=== PATIENT | female | born 1965 | race Caucasian/White ===

== ENCOUNTER → 2024-07-14 11:16 | Outpatient (REF) | payer BC, SELFPAY | LOC: WDC 11:16 | PROVIDERS: ATTENDING PHYSICIAN Family Medicine | DX: Z12.31 Encounter for screening mammogram for malignant neoplasm of breast (principal) | CPT/HCPCS: 77063; 77067 ==

== ENCOUNTER 2024-10-12 10:24 | Emergency (ER) | payer BC, SELFPAY ==
[2024-10-12 10:31] VITALS: BP 142/95
[2024-10-12 10:47] LABS: % Basophils 0.5 % (0-2); % Eosinophils 1.5 % (0-6); % Immature Granulocytes 0.2 % (0-0.5); % Lymphocytes 35.6 % (20.5-51.1); % Monocytes 7.4 % (1.7-9.3); % Neutrophils 54.8 % (42.2-75.2); Absolute Eosinophils 0.1 10^3/uL (0-0.7); Absolute Lymphocytes 1.4 10^3/uL (1.2-3.4); Absolute Monocytes 0.3 10^3/uL (0.1-0.6); Absolute Neutrophils 2.2 10^3/uL (1.4-6.5); Hematocrit 35.7 % (37.0-47.0); Hemoglobin 12.7 g/dL (12.0-16.0); Mean Corp Hgb Conc. 35.6 g/dL (33.0-37.0); Mean Corpuscular Hgb 33.7 pg (27.0-31.0); Mean Corpuscular Volume 94.7 fL (81.0-99.0); Mean Platelet Volume 8.7 fL (7.4-10.4); Nucleated Red Blood Cells % 0 %; Platelet Count 217 10^3/uL (130-400); Red Blood Cell Count 3.77 10^6/uL (4.20-5.40); Red Cell Dist. Width 11.8 % (11.5-14.5)
[2024-10-12 11:08] LABS: ALT (SGPT) 20 U/L (0-35); AST (SGOT) 29 U/L (14-36); Albumin 4.2 g/dl (3.5-5.0); Alkaline Phosphatase 72 U/L (38-126); Blood Urea Nitrogen 14 mg/dl (7-17); Calcium 9.4 mg/dl (8.4-10.2); Carbon Dioxide 30 mmol/L (22-30); Chloride 102 mmol/L (98-107); Glucose 168 mg/dl (70-99); Potassium 4.1 mmol/L (3.5-5.1); Sodium 137 mmol/L (135-145); Total Bilirubin 0.7 mg/dl (0.2-1.3); Total Protein 7.1 g/dl (6.3-8.2); eGFR > 60.00
[2024-10-12 11:12] LABS: Troponin I < 0.012 ng/ml
[2024-10-12 11:17] VITALS: BP 132/81
[2024-10-12 11:25] VITALS: BMI 21.9
--- NOTE | 2024-10-12 11:32 | ED.GENMED ---
History of Present Illness
General
Chief Complaint: Chest Pain
Source: patient
Exam Limitations: none
Time Seen by Provider: 10/12/24 11:19
History of Present Illness
History of Present Illness:
59yoF with no significant past medical history presenting with her for evaluation of chest pain. Patient reports chest discomfort in her left chest that started last night around 8 PM when she was sitting watching TV. She denies any
inciting incident. The pain remained constant but she was eventually able to go to sleep. Pain was again present when she woke up at 8 AM today. The pain started to radiate to the right side of the chest today. Nothing seems to make the pain
better or worse. Specifically, she denies any exertional or pleuritic pain. She is otherwise asymptomatic and denies any shortness of breath, cough, fever, diaphoresis, nausea, dizziness, paresthesias. Patient typically walks about 1 to 2 hours
daily and denies any exertional chest pain. No tobacco use. Patient states she is otherwise healthy and does not take any medications.
Past History
Past History
ED Past Medical History: Other (Denies)
Social History
Tobacco: Non-smoker
Alcohol: None
Personal:
Living: with family
Employment: Not employed
Phy Exam
General Physical Exam
General Presentation: well appearing and no apparent distress
General age: appears stated age
General Skin: warm and dry
General Habitus: normal
General Mental: alert
General Hydration: appears well hydrated
ENT Exam
ENT Exam: normocephalic
Cardiovascular Exam
Cardiovascular Exam: regular rate/rhythm, no edema and no murmur
Pulmonary Exam
Pulmonary Exam: lungs clear, no respiratory distress, no rales, no crackles, no rhonchi and other (+Chest wall tenderness bilaterally)
Neurological Exam
Neurological Exam: alert
[place] Coma Scale
Eye Opening: Spontaneous
Verbal Response: Oriented
Motor Response: Obeys Commands
GCS Total Score: 15
Skin Exam
Skin Exam: normal color and warm/dry
Psychiatric Exam
Psychiatric Exam: normal mood/affect
Scores
Heart Score for Chest Pain Patients
STEMI patient?: No
History: Moderately Suspicious
ECG: Normal
Age: >45 - <65 years
Risk Factors: No Risk Factors
Troponin: </= Normal Limit
Heart Score for Chest Pain Patients: 2
Heart Score Risk: 2.5% MACE over next 6 weeks
Course
Orders/Labs/Results
Orders:
Orders
10/12/24 10:26
ECG [Electrocardiogram (*1)] Urgent
Reason for Study: Chest Pain
EKG- Treatment ONCE
10/12/24 10:37
Complete Blood Count/With Diff Urgent
Comprehensive Metabolic Panel Urgent
Troponin I Urgent
10/12/24 11:34
Cardiac Monitoring- Treatment ONCE
EKG- Treatment ONCE
CR Chest - 2 Views Urgent
Comment:
Reason For Exam: CP
10/12/24 12:30
Electrocardiogram (*1) Urgent
Reason for Study: Chest Pain
10/12/24 12:41
Troponin I Urgent
Abnormal Lab Results
10/12/24
10:37
WBC 4.0 L 10^3/uL
(4.8-10.8)
RBC 3.77 L 10^6/uL
(4.20-5.40)
Hct 35.7 L %
(37.0-47.0)
MCH 33.7 H pg
(27.0-31.0)
Glucose 168 H mg/dl
(70-99)
10/12/24 10:37
10/12/24 10:37
Vital Signs
Initial and Last Documented VS:
Initial Vital Signs
Temp Pulse Resp BP Pulse Ox
99.1 F 98 16 142/95 100
10/12/24 10:31 10/12/24 10:31 10/12/24 10:31 10/12/24 10:31 10/12/24 10:31
Last Documented Vital Signs
Temp Pulse Resp BP Pulse Ox
99.1 F 80 13 123/81 99
10/12/24 10:31 10/12/24 12:45 10/12/24 12:45 10/12/24 12:00 10/12/24 12:30
MDM/Problems Addressed
Differential Diagnosis Includes:
59yoF here with chest pain since last night. L sided chest discomfort that radiates to the R chest. Otherwise asymptomatic. Denies exertional symptoms. No known cardiac risk factors. VSS. There is chest wall tenderness on exam. Differential
diagnosis includes but is not limited to: ACS, angina, musculoskeletal, pneumonia, less likely PE as oxygen saturation is 100% and she denies pleuritic pain
Initial ED plan: Cardiac labs and EKG obtained in triage. EKG shows NSR without ischemic changes and troponin WNL. Will check delta troponin/EKG and CXR.
*EKG
Interpreted by ED Provider?: Yes
EKG Intrepretation Date: 10/12/24
Heart Rate: 91
Rate: normal
Rhythm: sinus
[place]: normal axis
Interval: normal interval
QRS Pattern: normal QRS
Ischemia: no ischemia
*Critical Care Note
Total Time (30-74mins, 75-104mins- exclusive of procedures): Not Applicable
Update Note
Update Note:
Repeat EKG and troponin unchanged. Chest x-ray is normal. On reassessment, patient is already dressed and ready to go home. No indication for hospitalization. Unclear etiology of pain, possibly musculoskeletal given reproducible pain.
Supportive care discussed. Advised close follow-up with PCP and ED return precautions discussed. Patient in agreement with plan and was discharged in stable condition.
ED Attending Note
-
Portions of this chart may have been created with voice recognition software.� Occasional wrong word or��sound alike� substitutions may have occurred due to the inherent limitations of voice recognition software.
Discharge Plan
Departure
Patient Disposition: Home (Routine Discharge)
Date of Disposition: 10/12/24
Time of Disposition: 14:42
Patient with high blood pressure during this ER visit?: No
Discharge Problem:
Chest pain
Instructions: Chest Pain PCP Follow Up
Referrals:
Gi Warner DO [Family Provider] -
Activity Restrictions/Additional Instructions:
Please call today to schedule a follow-up with your family doctor. Return to the ER with any new or worsening symptoms.
Interventions
Interventions:
*Risk Screen - Suicide Last Done: 10/12/24 11:25
*General Assessment Last Done: 10/12/24 10:34
*Neglect/Abuse Screening Last Done: 10/12/24 11:25
ED- Fall Risk Assessment Last Done: 10/12/24 11:25
*ED COVID-19 Vaccine History Last Done: 10/12/24 11:25
*Nursing Disposition Last Done: 10/12/24 14:56
ED- Cardiac Assessment Last Done: 10/12/24 11:25
Discharge Date and Time
Discharge Date/Time: 10/12/24 14:56
Print Language: FRENCH
[2024-10-12 12:00] VITALS: BP 123/81
[2024-10-12 13:27] LABS: Troponin I < 0.012 ng/ml
== END 2024-10-12 14:56 | disposition home or self-care (01) ==
LOC: EMR 10:24
PROVIDERS: Emergency Medicine; Physician Assistant; EMERGENCY PHYSICIAN Emergency Medicine; FAMILY PHYSICIAN Family Medicine
DX: R07.89 Other chest pain (principal)
CPT/HCPCS: 99285; 71046; 80053; 84484; 85025; 93005

== ENCOUNTER 2025-07-02 15:18 | Inpatient (IN) | payer BC, SELFPAY ==
[2025-07-02] VITALS (14 sets, daily range): BP systolic 101–135; BP diastolic 81–103; BMI 19.9
--- NOTE | 2025-07-02 11:21 | EDRN ---
Dr. Alvarez in room w/ pt at this time.
--- NOTE | 2025-07-02 11:23 | EDRN ---
Pt is here for SOB and chest pain.
--- NOTE | 2025-07-02 11:26 | ED.GENMED ---
History of Present Illness
General
Chief Complaint: Heart Rate Problem
Source: patient and family
Exam Limitations: none
Time Seen by Provider: 07/02/25 11:20
Nursing documentation reviewed up to this point in time: agreed with
History of Present Illness
History of Present Illness:
Note:
CHIEF COMPLAINT(S)
Shortness of breath and chest pain.
HISTORY OF PRESENT ILLNESS
The patient is a 60-year-old female presenting with shortness of breath and chest pain that began on Tuesday. The shortness of breath was severe enough to require her son, Chuck, assistance. She reports the pain as localized to the chest area,
which worsens upon palpation. The patient mentions experiencing stress due to the recent passing of her on June 09. She had an earlier medical evaluation where an electrocardiogram was mentioned but details are not fully clear.
Currently, the patient denies taking aspirin regularly, stating she previously used to take baby aspirin but was advised to stop.
SOCIAL DETERMINANTS AFFECTING HEALTH
The patient reports increased stress due to the recent passing of her . She lives in an area that requires travel assistance from her son because she does not drive and her was her main support.
PHYSICAL EXAM
General: Alert, no acute distress.
Skin: Warm, dry.
Head: Normocephalic, atraumatic.
Neck: Supple, trachea midline.
Eye, Ears, Nose, Mouth, and Throat: Oral mucosa moist.
Cardiovascular: Normal peripheral perfusion, No edema.
Respiratory: Respirations are non-labored.
Gastrointestinal: Abdomen nondistended.
Back: Normal range of motion, Normal alignment.
Musculoskeletal: Normal range of motion, normal strength.
Neurological: Alert and oriented to person, place, time, and situation, No focal neurological deficit observed.
Psychiatric: Cooperative, appropriate mood & affect.
PLAN
- The patient will be administered aspirin in the emergency department.
- Initiate an intravenous line for further treatment.
- Blood tests will be conducted to explore underlying causes.
- Administer nitroglycerin to assess its effectiveness on chest pain.
- A chest X-ray will be performed for further evaluation.
DIFFERENTIAL DIAGNOSIS
The Differential Diagnosis includes, in no particular order and is not limited to:
- Acute coronary syndrome
- Angina pectoris
- Anxiety-related chest pain
- Pulmonary embolism
- Pneumonia
- Congestive heart failure
- Gastroesophageal reflux disease
- Costochondritis
- Pleural effusion
- Anemia
CARE-UPDATE
07/02/25 - 16:03
Patient remains on IV Heparin for anticoagulation therapy. Recent PT test confirms continued presence of bilateral pulmonary embolism. Monitoring for any bleeding complications due to anticoagulation therapy is ongoing. Adjustments to dosing to be
considered based on follow-up coagulation studies and clinical response. Continued assessment of right ventricular strain is recommended to evaluate cardiac status. Regular reassessment of d-dimer levels to track resolution of PE is planned.
EKG
My independent EKG interpretation is:
- Time of EKG: Not specified
- Rhythm: Supraventricular tachycardia (SVT), possible atrial tachycardia
- Heart Rate: Not specified
- [place] Interval: Not specified
- QRS Duration: Not specified
- QT Interval: Not specified
- [place]: Normal
- Abnormalities: Abnormality in anterior leads
Disposition:
SUMMARY OF ENCOUNTER
The patient, a 59-year-old female, presented with shortness of breath and chest pain. After examining the patient, bilateral pulmonary embolism with right heart strain was diagnosed. There was consideration for thrombolysis, catheter-directed
thrombolysis, or thrombectomy, but her current vital signs were stable, and these interventions were not deemed necessary. A PERT (Pulmonary Embolism Response Team) alert was activated to ensure that the pulmonary embolism team was aware and
involved in her management.
DISPOSITION
Admit to ICU.
ASSESSMENT
Bilateral pulmonary embolism with right heart strain.
EMERGENCY TREATMENTS ADMINISTERED
Ibuprofen was administered during the visit.
PLAN
The patient will be admitted to the Intensive Care Unit for close monitoring and management of her pulmonary embolism.
MEDICAL DECISION MAKING
-Category 1: My independent interpretation of the EKG indicated abnormalities in the anterior leads.
-Risk: Care significantly affected by social determinants of health due to increased stress from the recent passing of her and lack of personal transportation.
DIAGNOSIS
1. Pulmonary Embolism (Bilateral) - ICD-10: I26.99
2. Right Heart Strain - ICD-10: I51.9
Past History
Past History
ED Past Medical History: Other (Denies)
Social History
Tobacco: Non-smoker
Alcohol: None
Personal:
Living: with family
Employment: Not employed
Phy Exam
Physical Exam
Physical Exam:
.
Course
Orders/Labs/Results
Orders:
Orders
07/02/25 10:57
Electrocardiogram (*1) Urgent
Reason for Study: Chest Pain
EKG- Treatment ONCE
07/02/25 11:25
IV Insert/Care/Rem.- Treatment PRN
CR Chest Portable - 1 View Urgent
Comment:
Reason For Exam: chest pain
Reason Study Needs to be Portable: Patient Unstable
Pulse Ox/cont/shift [RESP] Stat
Quantity: 1
07/02/25 11:26
Aspirin Chewable [Low Strength Aspirin] 324 mg .ROUTE .STK-MED ONE
Nitroglycerin Sublingual [Nitrostat (Sublingual)] 0.4 mg .ROUTE .STK-MED ONE
07/02/25 11:29
Aspirin Chewable [Low Strength Aspirin] 324 mg PO NOW STA
Nitroglycerin Sublingual [Nitrostat (Sublingual)] 0.4 mg SL NOW STA
07/02/25 11:40
Complete Blood Count/With Diff Urgent
Comprehensive Metabolic Panel Urgent
D-Dimer Urgent
Magnesium Urgent
NT-proBNP Urgent
PTT Urgent
Comment: ADD
Troponin I Urgent
07/02/25 12:28
Heparin 4,600 units IV NOW STA
07/02/25 12:30
Heparin 23954 Units/250 ml 25,000 units in 250 ml IV PER PROTOCOL
Weight to be used for heparin protocol in kilograms (kg):: 57.6
Protocol:: DVT/PE
PTT Goal Range to be used:: PTT 73 to 111 seconds
Order type:: Initial
INITIAL Infusion Dose (UNITS/KG/hr) & then follow protocol:: 18 units/kg/hr
Infusion Dose in UNITS/hr & then follow protocol (UNITS/hr):: 1,000
INFUSION RATE in mL/hr & then follow protocol (mL/hr):: 10
For DVT/PE algorithm, re-bolus for low PTT?: Yes
PTT less than or equal to 64 seconds:: Re-bolus 80 units/kg (max 10,000units). Increase by 200 units/hr
(+ 2mL/hr)
PTT 64.1 to 72.9 seconds:: Re-bolus 40 units/kg (max 5,000 units). Increase by 100 units/hr
(+ 1mL/hr)
PTT 73 to 111 seconds:: Target Range. No change in rate.
PTT 111.1 to 130.9 seconds:: Decrease rate by 100 units/hr (- 1 mL/hr)
PTT 131 to 199.9 seconds:: HOLD for 1 hr. Then decrease by 200 units/hr (- 2mL/hr)
PTT greater than or equal to 200 seconds:: HOLD for 2 hrs & Notify Provider. Then decrease by 200 units/hr
(- 2mL/hr)
Lab follow-up:: Each change, PTT q6h until 2 consecutive are therapeutic. Then
PTT daily.
07/02/25 12:[address] Non Medication Order As Directed
Physician Order: PTT 6 hours after initial start of Heparin infusion
Above order entered?: Yes
07/02/25 12:44
Heparin 2,300 units IV Q6HPRN PRN
Heparin 4,600 units IV Q6HPRN PRN
07/02/25 12:48
Add On- LAB Urgent
Comments:: tube in lab
Tests Added?: PTT
07/02/25 13:18
CT Chest PE Study Urgent
Comment:
Reason For Exam: ddimer elevated short of breath, chest pain
07/02/25 14:08
Echo 2D MMode Color/Doppler Routine
Reason for Study: Tachycardia, Abnormal troponin
07/02/25 14:51
Troponin I Routine
07/02/25 15:04
Admit/Transfer Patient As Directed
Co-Sign Provider:
Level of Care: Inpatient admission
Assign to:: ICU
Physician / Group: Steffanie
Diagnosis: acute PEs
Reason for Hospitalization: acute PEs
Expected length of stay greater than two midnights?: Yes
ELOS- Estimated Length of Stay in days: 4
I certify the patient meets the requirements for IP care: Yes
PRN Pain Medication Management As Directed
May give lesser potent ordered pain med per pt: Yes
preference::
Protocol:: Medication orders for pain may be administered in a
manner that supports deferring to patient preference
when the pt is:
- Requesting an ordered lesser potent pain medication.
Least to most potent pain medications are defined
as: acetaminophen < NSAID < tramadol < opioids
(morphine, oxycodone, hydromorphone).
- Requesting a lesser dose of the same medication IF
ORDERED.
- Requesting a less intrusive route of administration
if both routes are prescribed by the provider (PO <
IV).
07/02/25 15:05
Code Status As Directed
Resuscitation Status: Full Code
07/02/25 19:00
PTT Urgent
Abnormal Lab Results
07/02/25 07/02/25
11:40 14:51
WBC 11.5 H 10^3/uL
(4.8-10.8)
RBC 4.03 L 10^6/uL
(4.20-5.40)
MCH 33.3 H pg
(27.0-31.0)
Plt Count 118 L 10^3/uL
(130-400)
Absolute Neuts (auto) 8.7 H 10^3/uL
(1.4-6.5)
Absolute Monos (auto) 0.9 H 10^3/uL
(0.1-0.6)
Neutrophils % 75.8 H %
(42.2-75.2)
Lymphocytes % 15.6 L %
(20.5-51.1)
D-Dimer > 20.00 H ug/mlFEU
(0.00-0.50)
Glucose 136 H mg/dl
(70-99)
Calcium 10.4 H mg/dl
(8.4-10.2)
Magnesium 1.5 L mg/dl
(1.6-2.3)
AST 117 H U/L
(14-36)
ALT 162 H U/L
(0-35)
Troponin I 0.285 H* ng/ml 0.248 H* ng/ml
07/02/25 11:40
07/02/25 11:40
Vital Signs
Initial and Last Documented VS:
Initial Vital Signs
Temp Pulse Resp BP Pulse Ox
97.8 F 125 20 129/103 98
07/02/25 10:53 07/02/25 10:53 07/02/25 10:53 07/02/25 10:53 07/02/25 10:53
Last Documented Vital Signs
Temp Pulse Resp BP Pulse Ox
97.8 F 114 27 129/94 94
07/02/25 10:53 07/02/25 16:00 07/02/25 16:00 07/02/25 15:00 07/02/25 16:00
*Pulse Oximetry
SaO2: 98
Oxygen Mode of Delivery: Room air
Patient hypoxic: no
*Critical Care Note
Total Time (30-74mins, 75-104mins- exclusive of procedures): 40
comment:
Critical care statement: A total of 40 minutes of critical care time was provided for this patient. This includes management of unstable vital signs, evaluation of the patient at bedside, reviewing the patient's pertinent medical records, discussion
with consultants, review of old EKGs and review of pertinent medical records. This time with separate from time utilized to perform the aforementioned documented procedures
ED Attending Note
-
Portions of this chart may have been created with voice recognition software.� Occasional wrong word or��sound alike� substitutions may have occurred due to the inherent limitations of voice recognition software.
Discharge Plan
Departure
Patient Disposition: Admit
Date of Disposition: 07/02/25
Time of Disposition: 14:47
Admit to: ICU
Presentation/result/management discussed w/ accepting MD/DO: Hospitalist
Patient with high blood pressure during this ER visit?: Yes
Condition: Fair
Discharge Problem:
Bilateral pulmonary embolism
Interventions
Interventions:
*Risk Screen - Suicide Last Done: 07/02/25 11:40
*General Assessment Last Done: 07/02/25 11:40
*Neglect/Abuse Screening Last Done: 07/02/25 11:40
*ED- Fall Risk Assessment Last Done: 07/02/25 11:40
*ED COVID-19 Vaccine History Last Done: 07/02/25 11:40
*ED Influenza Vaccine History Last Done: 07/02/25 11:40
ED- Cardiac Assessment Last Done: 07/02/25 11:40
ED- Pulmonary Assessment Last Done: 07/02/25 11:40
[2025-07-02] MEDS: LOW STRENGTH ASPIRIN 324 MG PO (11:32)
--- NOTE | 2025-07-02 11:40 | EDRN ---
Pt in no pain at this time. Dr. Alvarez ordered Nitroglycerin so was informed pt is pain free (states since she lied down on stretcher). Dr. Alvarez said to hold NTG as pt is pain free at this time.
[2025-07-02 11:48] LABS: Hematocrit 39.7 % (37.0-47.0); Hemoglobin 13.4 g/dL (12.0-16.0); Mean Corp Hgb Conc. 33.8 g/dL (33.0-37.0); Mean Corpuscular Volume 98.5 fL (81.0-99.0); Nucleated Red Blood Cells % 0 %; Platelet Count 118 10^3/uL (130-400); Red Cell Dist. Width 12.4 % (11.5-14.5)
[2025-07-02 12:14] LABS: ALT (SGPT) 162 U/L (0-35); AST (SGOT) 117 U/L (14-36); Albumin 4.4 g/dl (3.5-5.0); Alkaline Phosphatase 89 U/L (38-126); Blood Urea Nitrogen 16 mg/dl (7-17); Calcium 10.4 mg/dl (8.4-10.2); Carbon Dioxide 25 mmol/L (22-30); Chloride 100 mmol/L (98-107); Glucose 136 mg/dl (70-99); Magnesium 1.5 mg/dl (1.6-2.3); Potassium 4.2 mmol/L (3.5-5.1); Sodium 136 mmol/L (135-145); Total Protein 7.4 g/dl (6.3-8.2); eGFR > 60.00
[2025-07-02 12:18] LABS: D-Dimer > 20.00 ug/mlFEU (0.00-0.50)
[2025-07-02 12:23] LABS: Troponin I 0.285 ng/ml
[2025-07-02 12:58] LABS: APTT 27.6 Sec (23.4-35.0)
[2025-07-02] MEDS: HEPARIN 4600 UNITS IV (13:00)
[2025-07-02] MEDS: HEPARIN 25000 UNITS/250 ML IV (13:02)
--- NOTE | 2025-07-02 13:15 | EDRN ---
Second IV access started for CT scan as pt has been ordered heparin through other IV access.
--- NOTE | 2025-07-02 14:25 | EDRN ---
Mary GONZALEZ w/ cardiology in to see pt at this time.
--- NOTE | 2025-07-02 14:46 | CON.CAR ---
Addendum entered and electronically signed by Mor Lindsey MD 07/02/25 17:12:
I saw and evaluated the patient, and I provided the substantive portion of the medical decision making.
I reviewed and agree with the note by PAVEL Hoagn and it accurately reflects our care.
I personally performed the medical decision making of the this encounter and my assessment and plan is below:
2 weeks of BRYANT and then dyspnea at rest. No CP. + Dizziness but not syncope. EKG with SVT/AT at 119 bpm, S1q3T3, septal infarct, T inversions, RAD, RSr'
CTA + bilat PE, RV enlargement. Echo with RV dysfunction (mod to severe), PASP 57 RA 15
High risk pulmonary embolism. Spoke with pulmonary/face painter and for now no plans for thrombolysis, but watching closely on IV heparin and in ICU.
A repeat echocardiogram in approximately 3 months is recommended to assure resolution of the abnormal findings. Should persistent abnormalities be found a perfusion lung scan would be recommended.
Original Note:
Consultation
Consultation Request
Date/Time Consultation Requested: 07/02/2025 13:50
Date/Time Consultation Performed: 07/02/2025 14:20
Requesting Provider: Dr. Alvarez
Performing Provider: PAVEL Hogan for Dr. Lindsey
Reason for Consultation: Abnormal troponin
Medical History
-
Chief Complaint: Shortness of breath
History of Present Illness:
Glenis Rodriguez is a 60-year-old female without a significant past medical history who presented to the emergency department with a chief complaint of shortness of breath. She was referred by her PCP. Her shortness of breath began approximately 3 days
ago and has been progressively getting worse. She has needed to sit down while doing things around the house to catch her breath. She endorsed associated palpitations. These are intermittent. EKG with sinus tachycardia. She denies chest pain.
She is not currently hypoxic. Notable labs include a troponin of 0.285, proBNP of 7590, and a D-dimer of >20.
Past Medical History
Past Medical History: None
Past Surgical History: Gynecological
Social History
Tobacco: Non-Smoker
Alcohol: None
Drug: None
Personal: (06/2025)
Family History
Family History: Other (Father in his 60s due to congestive heart failure.)
Allergies / Home Medications
Allergy/AdvReac Type Severity Reaction Status Date / Time
No Known Allergies Allergy Verified 07/02/25 10:57
�Medication �Instructions �Recorded �Confirmed �Type
ascorbic acid (vitamin C) 500 mg 500 mg PO DAILY Supplement 07/02/25 07/02/25 History
tablet (Vitamin C)
calcium carbonate 1,000 mg PO DAILY Supplement 07/02/25 07/02/25 History
therapeutic multivitamin 1 tab PO DAILY Supplement 07/02/25 07/02/25 History
Review of Systems
-
History Source: Patient
All other systems: Negative unless noted
Constitutional: Fatigue
EENT: No Symptoms
Respiratory: Trouble Breathing
Cardiac: Palpitations
Abdomen/GI: No Symptoms
: No Symptoms
Musculoskeletal: No Symptoms
Skin: No Symptoms
Neurological: No Symptoms
Endocrine: No Symptoms
Hematologic/Lymphatic: No Symptoms
Physical Exam
Vital Signs
Temp Pulse Resp BP Pulse Ox
97.8 F 110 21 129/91 96
07/02/25 10:53 07/02/25 14:00 07/02/25 14:00 07/02/25 14:00 07/02/25 14:00
Lab Results
07/02/25 11:40
07/02/25 11:40
Troponin I 0.285 ng/ml H* 07/02/25 11:40
Uda-U-Xlsjdedwdng Pept 7590 pg/ml 07/02/25 11:40
Physical Exam
General: Well Developed, Well Nourished, No Apparent Distress and Comfortable
HEENT: Normocephalic, Anicteric and Moist Mucous Membranes
Respiratory: Clear
Cardiac: S1/S2 and Regular Rhythm
Breast: Deferred by me
GI: Soft, Non Tender, Non Distended and Normal Bowel Sounds
Rectal: Deferred by Provider
Genito-urinary: No Costovertebral Tender
Musculoskeletal: No Clubbing and No Cyanosis
Skin: Warm and Dry
Neuro: AO x 3
Hematologic/Lymphatic: No Lymphadenopathy
Psych: Calm
Impression / Plan
-
I/P: 60F without significant past medical history presented with shortness of breath and associated palpitations
Outpatient recreation counselor: None
Shortness of breath
- Not hypoxic
- D-dimer >20, CT PE study pending
- proBNP 7590, echocardiogram ordered - sudden in her earlier this month possibility of Takotsubo cardiomyopathy
Abnormal troponin, type unknown
- This could be in the setting of cardiomyopathy or PE
- Trend to peak
Tachycardia, sinus
- Likely due to underlying illness
Data Reviewed
-
EKG: Report Reviewed by me
Medical Tests (Nuc Med, Echo etc): Report Reviewed by me
Labs: Labs Reviewed by me
Old Records: Reviewed
--- NOTE | 2025-07-02 14:52 | EDRN ---
Dr. Alvarez in room w/ pt at this time.
--- NOTE | 2025-07-02 14:53 | EDRN ---
Pt returned from CT and troponin #2 drawn and sent at this itme.
--- NOTE | 2025-07-02 14:54 | HPS.HSE ---
Family Physician
-
Family Physician: Gi Warner
Chief Complaint
-
Shortness of breath
History of Present Illness
60-year-old female with no past medical history who presents with a chief complaint of shortness of breath. Over the last 3 days the patient has had shortness of breath. He is fairly sudden in onset. The day of onset she did have some
lightheadedness but denies any syncope. She reports associated pleuritic chest pain. She denies any other acute complaints including headache, neck stiffness, nausea, vomiting, diarrhea, abdominal pain, dysuria, focal neurological deficits,
diaphoresis.
Medical History
Past Medical History
Past Medical History: Reports None
Past Surgical History: Reports Other (N/A)
Social History
Tobacco: Non-smoker
Alcohol: None
Drug: None
Family History
Family History: Not pertinent
Allergies / Home Medications
Allergies reflects when Allergies were last updated in [facility].
Home Medications with original date entered in [facility]
Allergy/Medication List:
Allergies
Allergy/AdvReac Type Severity Reaction Status Date / Time
No Known Allergies Allergy Verified 07/02/25 10:57
Home Medications
ascorbic acid (vitamin C) 500 mg tablet (Vitamin C) 500 mg PO DAILY Supplement 07/02/25
calcium carbonate 1,000 mg PO DAILY Supplement 07/02/25
therapeutic multivitamin 1 tab PO DAILY Supplement 07/02/25
Review of Systems
-
History Source: Patient
A 12 point ROS was completed and negative except as noted: Yes
Physical Exam
Vital Signs
Vital Signs
Temp Pulse Resp BP Pulse Ox
97.8 F 110 21 129/91 96
07/02/25 10:53 07/02/25 14:00 07/02/25 14:00 07/02/25 14:00 07/02/25 14:00
Physical Exam
General: Other (.)
Laboratory Results
-
07/02/25 11:40
07/02/25 11:40
Laboratory Results
APTT Cancelled 07/02/25 12:33
Total Bilirubin 0.7 mg/dl (0.2-1.3) 07/02/25 11:40
AST 117 U/L (14-36) H 07/02/25 11:40
ALT 162 U/L (0-35) H 07/02/25 11:40
Alkaline Phosphatase 89 U/L (38-126) 07/02/25 11:40
Troponin I 0.285 ng/ml H* 07/02/25 11:40
Impression/Plan
-
Gen: NAD, AAOx3, appears chronically ill and malnourished.
Eyes: EOMI, PERRLA, no scleral icterus.
Neck: supple.
CV: tachy, reg rhythm, +S1/S2, no m/r/g.
Resp: CTAB, no rales, wheezes, or rhonchi.
Abd: +BS, soft, NT, ND
Skin: No rashes.
Neuro: CN 2-12 intact, non-focal.
Psych: Normal mood and affect.
CTA chest:
1. Positive for pulmonary embolism within each distal main pulmonary artery, extending into the segmental and subsegmental arteries of each lobe of the lung.
2. Positive for evidence of right heart strain, RV: LV ratio approximately 2.
3. Clear lungs.
ECG (read by me): Sinus tachy @ 119, nl axis, nl intervals except QTc 475ms, S1Q3T3 pattern
Acute B/L PE:
-CTA suggestive of RV strain, STAT echo, discussed with cards
-cont heparin gtt started in the ER
-dispo to ICU until tomorrow AM, then will re-eval level of care
-continuous pulse ox, frequent hemodynamic monitoring
-check B/L LE U/S, can be done within 24 hours (echo takes priority at this time)
-clearly will need lifelong AC
FULL/Heparin gtt/ICU
Total critical care time spent = 35 min
--- NOTE | 2025-07-02 15:07 | CON.INTV ---
Consultation
Consultation Request
Date/Time Consultation Requested: 07/02
Date/Time Consultation Performed: 07/02
Reason for Consultation: Critical care
Medical History
-
History of Present Illness:
History obtained from the patient and the son at the bedside, reviewing records. 60-year-old female without significant past medical history presents with shortness of breath. Initially she states a history of shortness of breath starting on 06/29
while doing activities around the house. She had some mild lightheadedness and some mild chest discomfort, pleuritic. She denies any syncope, cough, hemoptysis, leg pain, leg swelling, fevers, abdominal pain, diarrhea. Of note, on further
questioning her son chimes in and said her shortness of breath actually has been present for 2 weeks. Patient's 06/09 and she has been relatively sedentary although active around the house. She denies any recent travel, trauma or
procedures. Upon arrival to [facility], afebrile, pulse 110, breathing at 21, blood pressure 129/91, 96% on room air. Initial blood work unremarkable, mild transaminitis noted, troponin elevated 0.285. EKG with sinus tachycardia and
S1Q3T3. CT chest confirm pulmonary embolism, PERT alert called. Images reviewed immediately by myself and patient evaluated. We are asked to help from critical care standpoint
Of note, patient denies any bleeding history, blood in urine or stool, dark black stool, recent falls or trauma, or procedures
.
PMH: Patient denies any medical history. She states she is up-to-date with colonoscopy and mammogram. She just saw her primary physician 2 months ago and was given a 'clean bill of health'
Past Medical History
Past Medical History: None (See above)
Past Surgical History: None (See above)
Social History
Tobacco: Non-smoker
Alcohol: None
Drug: None
Personal:
Living: Alone
Employment: Not Employed
Family History
Family History: Other (1 son healthy. No siblings. Mother has history of blood clots and had an IVC filter, father had a history of blood clot. Details are unclear according to patient)
Allergies / Home Medications
Allergies
Allergy/AdvReac Type Severity Reaction Status Date / Time
No Known Allergies Allergy Verified 07/02/25 10:57
Home Medications
�Medication �Instructions �Recorded �Confirmed �Last Taken �Type
ascorbic acid (vitamin C) 500 mg 500 mg PO DAILY Supplement 07/02/25 07/02/25 07/01/25 History
tablet (Vitamin C)
calcium carbonate 1,000 mg PO DAILY Supplement 07/02/25 07/02/25 07/01/25 History
therapeutic multivitamin 1 tab PO DAILY Supplement 07/02/25 07/02/25 07/01/25 History
Review of Systems
-
All other systems: Negative unless noted (Denies weight loss, weight gain, PND, orthopnea. Has not seen cardiology or pulmonary in the past)
Vitals / Labs / Diagnostic Testing
Vital Signs
Temp Pulse Resp BP Pulse Ox
97.8 F 110 21 129/91 96
07/02/25 10:53 07/02/25 14:00 07/02/25 14:00 07/02/25 14:00 07/02/25 14:00
Lab Data
07/02/25 11:40
07/02/25 11:40
Laboratory Results
07/02/25 07/02/25
11:40 12:33
APTT 27.6 Cancelled
Diagnostic Testing:
Physical Exam
-
HEENT: Normocephalic, Anicteric and Other (Mildly cachectic)
Cardiovascular: S1/S2, Regular Rhythm (Mild tachycardia), Murmur (n), Rub (n), Peripheral Edema (mild right lower extremity) and Calf Tenderness (n)
Respiratory: Wheeze (n), Rales (n), Rhonchi (n) and Non-Labored Respirations
GI: Soft, Non Distended and Non Tender
Neurology: Awake, Alert and No Motor Deficits (Able to sit up without assistance)
Skin: Good Color and Other (No rash, no clubbing)
General: Comfortable
Assessment
-
60-year-old female with shortness of breath present for about 2 weeks, progressive presents with worsening over the last 4 days, found to have sinus tachycardia, elevated troponin/proBNP, bilateral pulmonary embolism with RV strain per CT imaging.
Patient started on heparin therapy, PERT alert called.
Acute Enrique PE
RV strain, per CT imaging
Normotensive, normoxic
Sinus tachycardia
Abnormal EKG
Subjective dyspnea x 2 weeks
Progressive
Questionable family history of thromboembolic disease
Mother with multiple clots, IVC filter, details unclear
Father with blood clot, from heart failure, details unclear
Plan/recommendations
At this time, patient is critically ill but stable. Despite extent of clot burden, RV strain on CT images, there is no evidence of hypoxia or hypotension
Tachycardia noted
Elevated cardiac biomarkers noted
Moving forward
For now given normoxia, normotension, would continue with heparin alone
Bolus has been initiated and maintenance therapy continues in the ED
Obtain baseline coagulation studies, including INR, PT
Check baseline fibrinogen level
Echocardiogram, Dopplers
Place Zarate catheter
Maintain adequate IV access, 20-gauge or greater
Would hold off on lytic therapy at this time
This was reviewed with primary service and interventional radiology
Reviewed pathophysiology of thromboembolic disease with patient and son at the bedside
Remains high risk situation, discussed risk for respiratory and cardiac failure, arrest,
Bedrest for now, will reassess in the a.m.
Reviewed with ED nurse, ED staff, cardiology, primary service
Reviewed with ICU nursing
TCCT 31 min
--- NOTE | 2025-07-02 15:19 | EDRN ---
Stem Dryer Maintainer Dr. Trejo in room w/ pt.
[2025-07-02 15:27] LABS: Troponin I 0.248 ng/ml
--- NOTE | 2025-07-02 15:30 | EDRN ---
Dr. Lindsey in room w/ pt at this time. Given print out of CT results and troponin #2 results. 0.248 at this time.
--- NOTE | 2025-07-02 15:40 | EDRN ---
[facility] at this time.
--- NOTE | 2025-07-02 16:06 | EDRN ---
Attempting to call ICU to give report on pt at this time. Echo completed at 15:55.
--- NOTE | 2025-07-02 16:14 | EDRN ---
Report called to Classy RN in ICU at this time,.
[2025-07-02 16:40] LABS: COVID-19 Antigen Negative (Negative)
[2025-07-02 17:03] LABS: Glucose - Point of Care 113 mg/dl (70-99)
--- NOTE | 2025-07-02 17:35 | PTCARENOTE ---
Patient arrived into room 3360 with Heparin gtt infusing at 1000unit/hr. Patient appears very anxious and talkative. Oriented to room and use of call ann. Pt aware for bedrest overnight d/t PEs causing RV strain. CHG done. Zarate placed as requested
by banquet cook, clear yellow urine. Skin intact. 97% RA. Denies pain at this time, although reports intermittent aching chest pain 4/10. Pt reports she has not been sleeping since recently passed. Therapeutic communication utilized,
encouraged deep breathing and meditation. Son at bedside. Call ann within reach. Pt ordered dinner.
[2025-07-02 18:07] LABS: Fibrinogen 188 MG/DL (199-459)
[2025-07-02 19:14] LABS: INR 1.23; PT 15.8 Sec (11.4-14.6)
[2025-07-02 19:17] LABS: APTT 115.3 Sec (23.4-35.0)
--- NOTE | 2025-07-02 21:00 | PTCARENOTE ---
Assumed care of patient at 1900. Patient AAOx3, anxious. ST on monitor 110s-120s. POX 95-96% on RA. No complaints of SOB or chest pain. Lungs diminished. Trace LE edema, feet cool and pale. DP and PT pulses via doppler bilaterally. Zarate draining
clear yellow urine. Patient aware of bedrest orders overnight. Heparin running through RAC #20 @ 9mls/hr - dose adjusted based on PTT result - see worklist. 20 LAC capped.
[2025-07-02] MEDS: MAGNESIUM SULFATE 100 IV (21:11)
[2025-07-03] VITALS (24 sets, daily range): BP systolic 93–130; BP diastolic 64–96; BMI 19.3
--- NOTE | 2025-07-03 00:49 | PTCARENOTE ---
Systems reviewed. No major changes in physical assessment.
[2025-07-03 02:01] LABS: Hematocrit 34.6 % (37.0-47.0); Hemoglobin 11.6 g/dL (12.0-16.0); Mean Corp Hgb Conc. 33.5 g/dL (33.0-37.0); Mean Corpuscular Volume 97.2 fL (81.0-99.0); Platelet Count 145 10^3/uL (130-400); Red Cell Dist. Width 12.2 % (11.5-14.5)
[2025-07-03 02:09] LABS: APTT 74.4 Sec (23.4-35.0)
[2025-07-03 03:38] LABS: Blood Urea Nitrogen 17 mg/dl (7-17); Calcium 8.9 mg/dl (8.4-10.2); Carbon Dioxide 25 mmol/L (22-30); Chloride 102 mmol/L (98-107); Estimated Creatinine Clearance 88 ml/min; Glucose 104 mg/dl (70-99); Magnesium 1.8 mg/dl (1.6-2.3); Potassium 4.3 mmol/L (3.5-5.1); Sodium 134 mmol/L (135-145); eGFR > 60.00
--- NOTE | 2025-07-03 04:23 | PTCARENOTE ---
Systems reviewed. No major changes in assessment. Heparin gtt therapeutic at 9mls/hr - next PTT due at 0750.
[2025-07-03] MEDS: MAGNESIUM SULFATE 102 GRAMS IV (06:45)
--- NOTE | 2025-07-03 07:57 | W.PN.INTV ---
Addendum entered and electronically signed by Timmy Rudolph MD 07/03/25 18:22:
Patient ambulated without difficulty
Heart rate 130s, denies symptoms
Blood pressure stable
Okay to discontinue Zarate catheter
Continue heparin therapy
Transfer to IMU
Pulmonary will continue to follow
Original Note:
Today's Communication / Plan
Recommendations
Continue heparin therapy
Maintain bedrest for now till p.m.
Abdominal ultrasound to assess liver, bladder
Age-appropriate cancer screening, can be done as outpatient
Given family history, hypercoagulable workup as outpatient
Assessment
-
60-year-old female with shortness of breath present for about 2 weeks, progressive presents with worsening over the last 4 days, found to have sinus tachycardia, elevated troponin/proBNP, bilateral pulmonary embolism with RV strain per CT imaging.
Patient started on heparin therapy, PERT alert called.
Acute Enrique PE
RV strain, per CT imaging
Normotensive, normoxic
Sinus tachycardia
Abnormal EKG
Subjective dyspnea x 2 weeks
Progressive
Questionable family history of thromboembolic disease
Mother with multiple clots, IVC filter, details unclear
Father with blood clot, from heart failure, details unclear
Plan/recommendations
At this time, patient is critically ill but stable. Despite extent of clot burden, RV strain on CT images, there is no evidence of hypoxia or hypotension
Tachycardia noted
Elevated cardiac biomarkers noted
Echocardiogram with dilated RV, poor function, systolic pressure 57
This combination suggest possible chronic process
Moving forward
For now given normoxia, normotension, would continue with heparin alone
No indication for lytic therapy at this time
Dopplers pending
Echocardiogram suggests potential chronic component given RV dilation and moderate pulm hypertension
Maintain Zarate catheter for now
Maintain adequate IV access, 20-gauge or greater
Reviewed pathophysiology of thromboembolic disease with patient and son at the bedside on 07/02
Remains high risk situation, discussed risk for respiratory and cardiac failure, arrest,
Bedrest for now, will reassess later in the p.m. today
Will check abdominal ultrasound given pulm hypertension, and with specific attention to the liver
Patient states she is up-to-date with colonoscopy and mammogram
May require additional testing as an outpatient, age-appropriate cancer screening and hypercoagulable workup given family history
Reviewed with critical care nursing, pharmacy, respiratory care
Reviewed with primary service
Remains high risk situation
TCCT 31 min
Subjective Dataa
Subjective Data
Date of Service:
Date of Service: July 03, 2025
Subjective:
Patient subjectively improved. Denies shortness of breath. Feels chest tightness and pleurisy has resolved. Denies nausea, abdominal pain, lightheadedness, palpitations. Zarate catheter in place
Objective Data
Data Reviewed
Vital Signs / I&O / Oxygen:
Vital Signs
Temp Pulse Resp BP Pulse Ox
97.6 F 102 22 118/88 95
07/03/25 07:22 07/03/25 07:00 07/03/25 07:00 07/03/25 07:00 07/03/25 07:00
Intake and Output
07/02/25 07/03/25 07/04/25
06:59 06:59 06:59
Intake Total 430 / 430
Output Total 428 / 428
Balance 2 / 2
SaO2 95
Physical Exam
General: Comfortable
HEENT: Normocephalic and Anicteric
Cardiovascular: S1-S2, Regular Rhythm (Tachycardia), Murmur (n), Rub (n), Peripheral Edema (n) and Calf Tenderness (n)
Respiratory: Wheeze (n), Crackles (n), Rhonchi (n), Non-Labored Respirations and Stridor (n)
GI: Soft, Non Distended and Non Tender
Neurology: Awake, Alert and No Motor Deficits
Skin: Jaundice (n), Rash (n) and Bruising (n)
Labs/Micro/Reports
Lab Data
07/03/25 01:49
07/03/25 01:49
Laboratory Results
07/02/25 07/02/25 07/02/25
11:40 12:33 18:56
PT 15.8 H
INR 1.23
APTT 27.6 Cancelled 115.3 H
07/03/25
01:49
PT
INR
APTT 74.4 H
--- NOTE | 2025-07-03 08:05 | W.PN.HOSP.TC ---
Today's Communication/Plan
-
see plan
Assessment / Plan
Assessment / Plan
Gen: NAD, AAOx3, appears chronically ill and malnourished.
Eyes: EOMI, PERRLA, no scleral icterus.
Neck: supple.
CV: remains tachy, reg rhythm, +S1/S2, no m/r/g.
Resp: remains CTAB, no rales, wheezes, or rhonchi.
Abd: remains +BS, soft, NT, ND
Skin: No rashes.
Neuro: CN 2-12 intact, non-focal.
Psych: Normal mood and affect.
CTA chest:
1. Positive for pulmonary embolism within each distal main pulmonary artery, extending into the segmental and subsegmental arteries of each lobe of the lung.
2. Positive for evidence of right heart strain, RV: LV ratio approximately 2.
3. Clear lungs.
ECG (read by me): Sinus tachy @ 119, nl axis, nl intervals except QTc 475ms, S1Q3T3 pattern
Echo:
1. The RV cavity is larger than the left ventricular cavity consistent with dilatation of the right ventricle. There is moderate to severe right ventricular systolic dysfunction.
2. Moderate pulmonary hypertension, estimated PASP 57 mmHg.
3. Elevated right atrial pressure, RA pressure estimated at 15 mmHg.
4. Normal left ventricular size and systolic function. D shape of the interventricular septum consistent with right ventricular pressure/volume overload.
5. No prior echocardiogram available for comparison.
6. A repeat echocardiogram in approximately 3 months is recommended to assure resolution of the abnormal findings. Should persistent abnormalities be found a perfusion lung scan would be recommended.
Acute B/L PE:
-CTA/echo above
-cont heparin gtt
-BPs borderline, pt saturating well on RA
-continuous pulse ox, frequent hemodynamic monitoring
-check B/L LE U/S
-clearly will need lifelong AC
-should have work up for underlying malignancy. I had ordered CT A/P with PO/IV contrast but after discussion with Dr. Rudolph will start with Abd U/S.
FULL/Heparin gtt
OK to downgrade to IMU
Anticipated Discharge: > 48 hours
Subjective/Interval History
-
Date of Service: July 03, 2025
SOB improving.
Objective Data
-
Labs:
Laboratory Results
07/03/25 07/03/25
01:49 07:54
WBC 11.3 H
Hgb 11.6 L
Hct 34.6 L
Plt Count 145 D
APTT 74.4 H Pending
Sodium 134 L
Potassium 4.3
Chloride 102
Carbon Dioxide 25
BUN 17
Creatinine 0.6
Glucose 104 H
Calcium 8.9 D
Vital Signs:
Vital Signs
Temp Pulse Resp BP Pulse Ox
97.6 F 104 12 99/65 97
07/03/25 07:22 07/03/25 08:00 07/03/25 08:00 07/03/25 08:00 07/03/25 08:03
I&O
07/02/25 07/03/25 07/04/25
06:59 06:59 06:59
Intake Total 430 / 430
Output Total 428 / 428
Balance 2 / 2
[2025-07-03 08:23] LABS: APTT 59.9 Sec (23.4-35.0)
[2025-07-03] MEDS: HEPARIN 4600 UNITS IV (08:53)
--- NOTE | 2025-07-03 09:00 | PTCARENOTE ---
Rec'd care of patient at 0700. AAOx3. MAEx4. Anxious. NSR/ST, rate in the 90-110's. Trace edema in b/l le. Palpable pulses. Denies cp. Pulse ox 95-97% on RA. Lung sounds diminished in b/l base. BRYANT. +BS. Appetite good. Zarate in place for critical
I/O. Heparin infusion maintained. PTT subtherapeutic. Rebolused and rate increased per protocol. US b/l LE completed. Per Collateral Clerk, keep patient bedrest and reassess status this afternoon.
--- NOTE | 2025-07-03 11:14 | CM ---
Patient's this month. Went to bed and passed. No apparent illness. Initial assessment completed with patient who now lives alone in a 2 story home with no basement, B/B on 2nd. no steps to enter. MORTGAGE LOAN COORDINATOR patient was independent in
ADL's and ambulation with no AD, does not drive. There are multiple SPC's in the home from past use of parents. No in-home services. No HC-POA. No VA benefits. No psychiatric hospitalizations. PCP is Dr. Gi Warner. Pharmacy is [facility] on [address] in [place]. Discharge POC: Anticipate home with no needs.
--- NOTE | 2025-07-03 11:56 | W.PN.CD ---
Today's Communication / Plan
-
Anticoagulation
Echo in 3 months
If SVT persists as she improves may give Adenosine
Impression / Plan
-
60F without significant past medical history presented with shortness of breath and associated palpitations
Outpatient christian counselor: None
Acute pulmonary emboli with RV dysfunction and elevated PASP (57 mmHg) and RA (15 mmHg) pressures
- IV heparin => later oral anticoagulant
- Will need echo at about 3 months and if not normal will need lung perfusion scan
- As pulmonary notes: age-appropriate cancer screening and with family history an outpatient hypercoagulable workup
Nonischemic myocardial injury from pulmonary emboli, peak trop 0.285
Elevated pBNP 7,590 is from right heart failure from pulmonary emboi
SVT: Tachycardia is a long R-P tachycardia: DDx atrial tachycardia, atypical AVNRT (up the slow pathway, down the fast pathway which is opposite of usual/typical AVNRT), or AVRT utilizing a concealed slowly conducting posteroseptal bypass tract
- This tachycardia may resolove as right heart recovers
- AVRT and AVNRT should terminate with IV adenosine, which we may chose to try if tachycardia persists, some ATs will be adenosine responsive, typically less than 10%
Abnormal EKG
- Will see if EKG normalizes as she recovers from pulmonary emboli
Subjecitve:
No palps, dyspnea persists
Echo 07/03/2025
1. The RV cavity is larger than the left ventricular cavity consistent with dilatation of the right ventricle. There is moderate to severe right ventricular systolic dysfunction.
2. Moderate pulmonary hypertension, estimated PASP 57 mmHg.
3. Elevated right atrial pressure, RA pressure estimated at 15 mmHg.
4. Normal left ventricular size and systolic function. D shape of the interventricular septum consistent with right ventricular pressure/volume overload.
5. No prior echocardiogram available for comparison.
Physical Exam
Vital Signs/Labs
Vital Signs
Temp Pulse Resp BP Pulse Ox
97.6 F 118 20 111/86 96
07/03/25 07:22 07/03/25 11:00 07/03/25 11:00 07/03/25 11:00 07/03/25 11:00
07/02/25 07/03/25 07/04/25
06:59 06:59 06:59
Actual Weight 55.8 kg
07/03/25 01:49
07/03/25 01:49
PT 15.8 Sec (11.4-14.6) H 07/02/25 18:56
INR 1.23 07/02/25 18:56
APTT 59.9 Sec (23.4-35.0) H 07/03/25 07:54
Magnesium 1.8 mg/dl (1.6-2.3) 07/03/25 01:49
07/02/25
11:40
[id number] Pept 7590
LAB Results
07/02/25 07/02/25
11:40 14:51
Troponin I 0.285 H* 0.248 H*
Physical Exam
Constitutional: No acute distress
Cardiovascular: Rhythm & rate is regular (rapid rate) and Pedal edema is absent
Respiratory: Respiratory effort normal and Lungs clear to auscul.
GI: Soft and Distention absent
Neuro/Psych: AO x 3
Data Reviewed
-
Date of Service: July 03, 2025
--- NOTE | 2025-07-03 12:15 | PTCARENOTE ---
No changes in assessment. Patient resting comfortably. VSS.
[2025-07-03] MEDS: HEPARIN 25000 UNITS/250 ML IV (15:06)
[2025-07-03 15:22] LABS: APTT 132.7 Sec (23.4-35.0)
--- NOTE | 2025-07-03 17:09 | PTCARENOTE ---
Plan discussed with New Car Get Ready Mechanic. Patient cleared to get oob. Ambulatory in room without difficulty. Denies dyspnea. HR up to 130's with exertion; down to 110's once back in bed. Zarate removed. DTV by 2300. PTT result 132.7. Per protocol, drip placed
on hold for 1 hr. Protocol stating to decrease rate by 200 units/hr to a rate of 900 units/hr. Patient subtherapeutic on 900 units/hr previously. Discussed with Pharmacist and New Car Get Ready Mechanic. Per New Car Get Ready Mechanic, decrease rate by 100 units/hr to a rate of
1000 units/hr. Next PTT ordered for 0. No other changes.
--- NOTE | 2025-07-03 18:23 | PTCARENOTE ---
Patient downgraded to IMU level of care.
--- NOTE | 2025-07-03 19:46 | PTCARENOTE ---
on assessment pt aaox3, ST LIA on the monitor, remains on hep gtt per MD orders, RA 97%, denies chest pain and SOB, reg diet, NPO at 0000 for CHAI ZHAO, jay removed today, family at bedside, call ann in reach
[2025-07-03 22:51] LABS: APTT 71.6 Sec (23.4-35.0)
[2025-07-03] MEDS: HEPARIN 2300 UNITS IV (23:05)
--- NOTE | 2025-07-03 23:11 | PTCARENOTE ---
report given to IMU, son remains at bedside, all belongings with pt, PTT sent and not resulted yet RN notified
[2025-07-04] VITALS (10 sets, daily range): BP systolic 105–123; BP diastolic 69–86
--- NOTE | 2025-07-04 00:48 | PTCARENOTE ---
Rec'd pt as transfer. PTT resulted, heparin protocol followed, see MAR and worklist documentation. Son remains at bedside. Call ann within reach. Care ongoing.
[2025-07-04 05:42] LABS: Hematocrit 31.6 % (37.0-47.0); Hemoglobin 11.4 g/dL (12.0-16.0); Mean Corp Hgb Conc. 36.1 g/dL (33.0-37.0); Mean Corpuscular Volume 94.0 fL (81.0-99.0); Platelet Count 166 10^3/uL (130-400); Red Cell Dist. Width 12.2 % (11.5-14.5)
[2025-07-04 06:12] LABS: APTT 132.4 Sec (23.4-35.0)
--- NOTE | 2025-07-04 08:02 | W.PN.CD ---
Today's Communication / Plan
-
IV heparin => DOAC once pulm says ok
Watch on telemetry
Impression / Plan
-
60F without significant past medical history presented with shortness of breath and associated palpitations
Outpatient turner off: None
Acute pulmonary emboli with RV dysfunction and elevated PASP (57 mmHg) and RA (15 mmHg) pressures
- IV heparin => later oral anticoagulant
- Will need echo at about 3 months and if not normal will need lung perfusion scan
- As pulmonary notes: age-appropriate cancer screening and with family history an outpatient hypercoagulable workup
Nonischemic myocardial injury from pulmonary emboli, peak trop 0.285
Elevated pBNP 7,590 is from right heart failure from pulmonary emboi
SVT: Tachycardia is a long R-P tachycardia: DDx atrial tachycardia, atypical AVNRT (up the slow pathway, down the fast pathway which is opposite of usual/typical AVNRT), or AVRT utilizing a concealed slowly conducting posteroseptal bypass tract
- This tachycardia may resolove as right heart recovers
- She is currently asymptomatic. If she develops palps, could try adenosine vs beta aurea
Abnormal EKG
- Will see if EKG normalizes as she recovers from pulmonary emboli
Subjecitve:
No palpitations. No dyspnea or chest pain at rest. Has been up and to the bathroom
Echo 07/03/2025
1. The RV cavity is larger than the left ventricular cavity consistent with dilatation of the right ventricle. There is moderate to severe right ventricular systolic dysfunction.
2. Moderate pulmonary hypertension, estimated PASP 57 mmHg.
3. Elevated right atrial pressure, RA pressure estimated at 15 mmHg.
4. Normal left ventricular size and systolic function. D shape of the interventricular septum consistent with right ventricular pressure/volume overload.
5. No prior echocardiogram available for comparison.
Physical Exam
Vital Signs/Labs
Vital Signs
Temp Pulse Resp BP Pulse Ox
97.5 F 103 19 105/74 94
07/04/25 07:09 07/04/25 06:00 07/04/25 06:00 07/04/25 04:00 07/04/25 05:43
07/03/25 07/04/25 07/05/25
06:59 06:59 06:59
Actual Weight 123 lb 0.287 oz
07/04/25 05:25
07/03/25 01:49
PT 15.8 Sec (11.4-14.6) H 07/02/25 18:56
INR 1.23 07/02/25 18:56
APTT 132.4 Sec (23.4-35.0) H 07/04/25 05:25
Magnesium 1.8 mg/dl (1.6-2.3) 07/03/25 01:49
07/02/25
11:40
Jdf-E-Kxefpnyggpv Pept 7590
LAB Results
07/02/25 07/02/25
11:40 14:51
Troponin I 0.285 H* 0.248 H*
Physical Exam
Constitutional: No acute distress and Comfortable
Cardiovascular: Rhythm & rate is regular, Pedal edema is absent, S1S2 is normal and Murmur/rub/gallop absent
Respiratory: Respiratory effort normal and Lungs clear to auscul.
Neuro/Psych: AO x 3
Data Reviewed
-
Date of Service: July 04, 2025
Medical Decision Making: Reviewed Test Results, Test Interpretation and Review of Case with other Provider
EKG: Tracing Personally Visualized and interpreted
Echo: Report Reviewed by me
Labs: Labs Reviewed by me
--- NOTE | 2025-07-04 08:52 | PTCARENOTE ---
Patient received from [employer]. Patient resting comfortably in bed. AAO, VSS. No events noted overnight. No complaints of pain at this time. Currently on room air. Heparin gtt restarted at start of shift due to PTT assessment, next PTT @
1330. Patient remains NPO for AB US. No other testing at this time. Call ann in reach.
--- NOTE | 2025-07-04 09:51 | W.PN.HOSP.TC ---
Today's Communication/Plan
-
see plan
Assessment / Plan
Assessment / Plan
Gen: NAD, AAOx3, appears chronically ill and malnourished.
Eyes: EOMI, PERRLA, no scleral icterus.
Neck: supple.
CV: continues to remain tachy, reg rhythm, +S1/S2, no m/r/g.
Resp: continues to remain CTAB, no rales, wheezes, or rhonchi.
Abd: continues to remain +BS, soft, NT, ND
Skin: No rashes.
Neuro: CN 2-12 intact, non-focal.
Psych: Normal mood and affect.
CTA chest:
1. Positive for pulmonary embolism within each distal main pulmonary artery, extending into the segmental and subsegmental arteries of each lobe of the lung.
2. Positive for evidence of right heart strain, RV: LV ratio approximately 2.
3. Clear lungs.
ECG (read by me): Sinus tachy @ 119, nl axis, nl intervals except QTc 475ms, S1Q3T3 pattern
B/L LE U/S: Acute deep venous thrombosis from the left common femoral vein through the left popliteal vein.
Echo:
1. The RV cavity is larger than the left ventricular cavity consistent with dilatation of the right ventricle. There is moderate to severe right ventricular systolic dysfunction.
2. Moderate pulmonary hypertension, estimated PASP 57 mmHg.
3. Elevated right atrial pressure, RA pressure estimated at 15 mmHg.
4. Normal left ventricular size and systolic function. D shape of the interventricular septum consistent with right ventricular pressure/volume overload.
5. No prior echocardiogram available for comparison.
6. A repeat echocardiogram in approximately 3 months is recommended to assure resolution of the abnormal findings. Should persistent abnormalities be found a perfusion lung scan would be recommended.
Acute B/L PE and LLE DVT:
-CTA/echo/LE U/S above
-cont heparin gtt
-BPs borderline, pt saturating well on RA
-continuous pulse ox, frequent hemodynamic monitoring
-clearly will need lifelong AC
-should have work up for underlying malignancy. I had ordered CT A/P with PO/IV contrast but after discussion with Dr. Rudolph will start with Abd U/S.
SVT:
-A-tach vs AVNRT
-discussed with Dr. Albert, no med changes today
Pt's son updated at bedside. RN updated.
FULL/Heparin gtt/IMU
Total time spent on today's encounter was 50 minutes which included time spent in counseling the patient/family regarding diagnosis and treatment plan as listed above, goals of care, and symptom management. Case was discussed with nursing staff,
specialists, and care coordinators/case management. All labs and imaging personally reviewed by me. Remainder the time spent in detailed review of previous records, lab data, imaging, and other medical provider documentation.
Anticipated Discharge: 24 - 48 hours
Subjective/Interval History
-
Date of Service: July 04, 2025
Denies shortness of breath.
Objective Data
-
Labs:
Laboratory Results
07/03/25 07/04/25 07/04/25
22:30 05:25 13:30
WBC 9.4
Hgb 11.4 L
Hct 31.6 L
Plt Count 166
APTT 71.6 H 132.4 H Pending
Vital Signs:
Vital Signs
Temp Pulse Resp BP Pulse Ox
97.5 F 103 19 105/74 94
07/04/25 07:09 07/04/25 06:00 07/04/25 06:00 07/04/25 04:00 07/04/25 05:43
I&O
07/03/25 07/04/25 07/05/25
06:59 06:59 06:59
Intake Total 430 / 439 635 / 635
Output Total 428 / 628 980 / 980
Balance 2 / -189 -345 / -345
--- NOTE | 2025-07-04 15:03 | W.PN.PUL3 ---
Today's Communication / Plan
-
- Medically stable, on room air, agree with transitioning to Eliquis 10 mg twice daily
- Assess for need for home oxygen prior to discharge, particularly while ambulating
- Outpatient follow-up with [facility] pulmonary clinic, information added to discharge section
- Pulmonary team will sign off, please call as needed
Assessment
-
60-year-old female with shortness of breath present for about 2 weeks, progressive presents with worsening over the last 4 days, found to have sinus tachycardia, elevated troponin/proBNP, bilateral pulmonary embolism with RV strain per CT imaging.
Patient started on heparin therapy, PERT alert called.
Acute Bilateral PE and LLE DVT
RV strain, per CT imaging
Normotensive, normoxic
Sinus tachycardia
Abnormal EKG
Subjective dyspnea x 2 weeks
Progressive
Questionable family history of thromboembolic disease
Mother with multiple clots, IVC filter, details unclear
Father with blood clot, from heart failure, details unclear
Plan/recommendations
Patient continues to do well. Currently saturating well on room air. Normotensive, not requiring any supplemental oxygen or pressor support.
Agree with transitioning to Eliquis later today
Additional workup can be pursued as outpatient.
Will favor long-term anticoagulation considering patient's age and unprovoked VTE event and a positive family history.
Will need age-appropriate cancer screening including mammogram and colonoscopy, can pursue as outpatient
Assess for need for home oxygen prior to discharge
Total time spent on this consultation/encounter _35___ minutes which includes review of history, physical exam, medications, laboratory data, personal review of imaging, extensive review of outpatient records, discussion with care team and
respiratory therapy.
Subjective Data
-
Date of Service:
Date of Service: July 04, 2025
Subjective:
Patient comfortably sitting in bed, on room air, saturating well. Denies any dyspnea.
Review of Systems
Genitourinary: Other (All 14 systems reviewed and negative except as stated above in the history of present illness.)
Objective Data
Data Reviewed
Vital Signs / I&O / Oxygen:
Vital Signs
Temp Pulse Resp BP Pulse Ox
97.1 F 103 19 105/74 95
07/04/25 11:00 07/04/25 06:00 07/04/25 06:00 07/04/25 04:00 07/04/25 11:49
Intake and Output
07/03/25 07/04/25 07/05/25
06:59 06:59 06:59
Intake Total 430 / 439 635 / 635
Output Total 428 / 628 980 / 980
Balance 2 / -189 -345 / -345
SaO2 95
Physical Exam
General: Comfortable
HEENT: Normocephalic
Cardiovascular: S1-S2 and Peripheral Edema (Left lower extremity edema)
Respiratory: Clear and Non-Labored Respirations
GI: Soft and Non Distended
Skin: Warm
Labs/Micro/Reports
Lab Data
07/04/25 05:25
07/03/25 01:49
Laboratory Results
07/03/25 07/03/25 07/04/25
15:02 22:30 05:25
APTT 132.7 H 71.6 H 132.4 H
[2025-07-04 15:29] LABS: APTT 48.8 Sec (23.4-35.0)
[2025-07-04] MEDS: HEPARIN 4600 UNITS IV (16:09)
--- NOTE | 2025-07-04 16:37 | CM ---
F/U: RN stated that patient will start Eliquis tonight/ tomorrow so Case Management will follow up with Hospitalist to inquire dosing so that we can call to inquire the altman with patient's pharmacy. PLAN: Anticipate Home No needs.
[2025-07-04] MEDS: ELIQUIS 10 MG PO (19:44)
--- NOTE | 2025-07-04 22:00 | PTCARENOTE ---
Assumed care of Pt from dayshift RN after change of shift report. Pt is aaox3. NSR on monitor. Eliquis administered to pt, see MAR. HS hygiene provided, see worklist. assessment as documented. call light in reach. safe environment maintained.
[2025-07-05] VITALS (9 sets, daily range): BP systolic 113–151; BP diastolic 76–96
[2025-07-05] MEDS: ELIQUIS 10 MG PO ×2 (08:04→19:40)
--- NOTE | 2025-07-05 08:16 | PTCARENOTE ---
Assumed care of pt at 0715: Pt SR on monitor. Vital signs stable. Pt eating breakfast. AM eliquis given. Pt assessed, has no complaints at this time.
--- NOTE | 2025-07-05 08:19 | W.PN.HOSP.TC ---
Today's Communication/Plan
-
see plan
Assessment / Plan
Assessment / Plan
Gen: NAD, AAOx3, appears chronically ill and malnourished.
Eyes: EOMI, PERRLA, no scleral icterus.
Neck: supple.
CV: tachy, reg rhythm, +S1/S2, no m/r/g.
Resp: CTAB, no rales, wheezes, or rhonchi.
Abd: +BS, soft, NT, ND
Skin: No rashes.
Neuro: CN 2-12 intact, non-focal.
Psych: Normal mood and affect.
CTA chest:
1. Positive for pulmonary embolism within each distal main pulmonary artery, extending into the segmental and subsegmental arteries of each lobe of the lung.
2. Positive for evidence of right heart strain, RV: LV ratio approximately 2.
3. Clear lungs.
ECG (read by me): Sinus tachy @ 119, nl axis, nl intervals except QTc 475ms, S1Q3T3 pattern
B/L LE U/S: Acute deep venous thrombosis from the left common femoral vein through the left popliteal vein.
Pelvic/transvaginal U/S: Unremarkable pelvic ultrasound
Abd U/S: Unremarkable abdominal ultrasound
Bladder U/S: Severe urinary retention.
Echo:
1. The RV cavity is larger than the left ventricular cavity consistent with dilatation of the right ventricle. There is moderate to severe right ventricular systolic dysfunction.
2. Moderate pulmonary hypertension, estimated PASP 57 mmHg.
3. Elevated right atrial pressure, RA pressure estimated at 15 mmHg.
4. Normal left ventricular size and systolic function. D shape of the interventricular septum consistent with right ventricular pressure/volume overload.
5. No prior echocardiogram available for comparison.
6. A repeat echocardiogram in approximately 3 months is recommended to assure resolution of the abnormal findings. Should persistent abnormalities be found a perfusion lung scan would be recommended.
Acute B/L PE and LLE DVT:
-CTA/echo/LE U/S above
-was on heparin gtt, now on Eliquis, clearly will need lifelong AC
-BPs borderline, pt saturating well on RA
-saturating well on RA
-pelvic/transvaginal, abdominal, bladder ultrasound above without evidence of mass
-check CT A/P with IV/PO contrast
SVT:
-A-tach vs AVNRT
-discussed with Lucille (cardiology), no med changes today
FULL/Heparin gtt/tele
Dispo: Goal for d/c tomorrow AM.
Anticipated Discharge: Within 24 hours
Subjective/Interval History
-
Date of Service: July 05, 2025
No new complaints. Denies SOB.
Objective Data
-
Vital Signs:
Vital Signs
Temp Pulse Resp BP Pulse Ox
98.3 F 102 20 124/88 98
07/05/25 07:15 07/05/25 08:00 07/05/25 08:00 07/05/25 08:00 07/05/25 04:00
I&O
07/04/25 07/05/25 07/06/25
06:59 06:59 06:59
Intake Total 635 / 635 580 / 580
Output Total 980 / 980
Balance -345 / -345 580 / 580
--- NOTE | 2025-07-05 08:55 | W.PN.CD ---
Addendum entered and electronically signed by Jose F Burk MD 07/05/25 10:25:
I saw and examined the patient independently, and performed majority of MDM.
The PHOTOGRAMMETRIC TECH's note was reviewed and I agree with the note with changes/additions below.
Comment: 60 yo female admitted with PE with RV strain, and paroxysmal SVT. SOB is better. No palps. Exam with RRR, no murmurs, no edema. Tele: SR/ST, no arrhythmia.
Acute PE with RV strain
-continue eliquis
-will repeat echo as outpatient
SVT
-without recurrence
-monitor off of meds
please call us back with additional questions
Original Note:
Today's Communication / Plan
-
continue Eliquis 10mg BID as per pulmonary
Impression / Plan
-
60yo female without significant past medical history presented with shortness of breath and associated palpitations.
Outpatient [employer]: will be Dr. Lindsey.
Acute pulmonary emboli with RV dysfunction and elevated PASP (57 mmHg) and RA (15 mmHg) pressures
- now on Eliquis 10mg BID per pulmonary
- Will need echo at about 3 months and if not normal will need lung perfusion scan
- As pulmonary notes: age-appropriate cancer screening and with family history, an outpatient hypercoagulable workup
Nonischemic myocardial injury from pulmonary emboli, peak trop 0.285
Elevated pBNP 7,590 is from right heart failure from pulmonary emboli
SVT: Tachycardia is a long R-P tachycardia: DDx atrial tachycardia, atypical AVNRT (up the slow pathway, down the fast pathway which is opposite of usual/typical AVNRT), or AVRT utilizing a concealed slowly conducting posteroseptal bypass tract
- This tachycardia may resolve as right heart recovers and tele stable in last 24 hours
- She is currently asymptomatic. If she develops palps, could try adenosine vs beta aurea
Abnormal EKG
- Will see if EKG normalizes as she recovers from pulmonary emboli, will follow as an outpatient
Subjecitve:
Feels well w/o cardiac complaints.
Denies palpitations, SOB or CP.
Echo 07/03/2025
1. The RV cavity is larger than the left ventricular cavity consistent with dilatation of the right ventricle. There is moderate to severe right ventricular systolic dysfunction.
2. Moderate pulmonary hypertension, estimated PASP 57 mmHg.
3. Elevated right atrial pressure, RA pressure estimated at 15 mmHg.
4. Normal left ventricular size and systolic function. D shape of the interventricular septum consistent with right ventricular pressure/volume overload.
5. No prior echocardiogram available for comparison.
Physical Exam
Vital Signs/Labs
Vital Signs
Temp Pulse Resp BP Pulse Ox
98.3 F 102 20 124/88 98
07/05/25 07:15 07/05/25 08:00 07/05/25 08:00 07/05/25 08:00 07/05/25 04:00
07/04/25 05:25
07/03/25 01:49
PT 15.8 Sec (11.4-14.6) H 07/02/25 18:56
INR 1.23 07/02/25 18:56
APTT 48.8 Sec (23.4-35.0) H 07/04/25 14:24
Magnesium 1.8 mg/dl (1.6-2.3) 07/03/25 01:49
07/02/25
11:40
Ago-B-Drlokaszayd Pept 7590
LAB Results
07/02/25 07/02/25
11:40 14:51
Troponin I 0.285 H* 0.248 H*
Physical Exam
Constitutional: No acute distress
EENT: Anicteric and Moist mucous membranes
Cardiovascular: Rhythm & rate is regular
Respiratory: Respiratory effort normal and Lungs clear to auscul.
GI: Soft, Non tender and Normal bowel sounds
Neuro/Psych: AO x 3
Other: Skin (warm, dry)
Data Reviewed
-
Date of Service: July 05, 2025
Medical Decision Making: Reviewed Test Results
EKG: Report Reviewed by me
Echo: Report Reviewed by me
Labs: Labs Reviewed by me
[2025-07-05] MEDS: OMNIPAQUE 50 ML PO (09:46)
--- NOTE | 2025-07-05 11:26 | PTCARENOTE ---
Pt just finished CT prep. Ct will call when they are able to take her for scan. Pt being transferred to [facility]. Report given to Ranjit ZAMARRIPA.
[2025-07-06 03:27] VITALS: BP 111/65
[2025-07-06] MEDS: ELIQUIS 10 MG PO (07:47)
[2025-07-06 07:52] VITALS: BP 121/75
--- NOTE | 2025-07-06 08:04 | W.PN.HOSP.TC ---
Addendum entered and electronically signed by Zechariah Valiente MD 07/15/25 13:34:
Acute Pulmonary embolism with acute cor pulmonale
Original Note:
Today's Communication/Plan
-
d/c
Assessment / Plan
Assessment / Plan
Gen: NAD, AAOx3, appears chronically ill and malnourished.
Eyes: EOMI, PERRLA, no scleral icterus.
Neck: supple.
CV: tachy, reg rhythm, +S1/S2, no m/r/g.
Resp: CTAB, no rales, wheezes, or rhonchi.
Abd: +BS, soft, NT, ND
Skin: No rashes.
Neuro: CN 2-12 intact, non-focal.
Psych: Normal mood and affect.
CTA chest:
1. Positive for pulmonary embolism within each distal main pulmonary artery, extending into the segmental and subsegmental arteries of each lobe of the lung.
2. Positive for evidence of right heart strain, RV: LV ratio approximately 2.
3. Clear lungs.
ECG (read by me): Sinus tachy @ 119, nl axis, nl intervals except QTc 475ms, S1Q3T3 pattern
B/L LE U/S: Acute deep venous thrombosis from the left common femoral vein through the left popliteal vein.
Pelvic/transvaginal U/S: Unremarkable pelvic ultrasound
Abd U/S: Unremarkable abdominal ultrasound
Bladder U/S: Severe urinary retention.
Echo:
1. The RV cavity is larger than the left ventricular cavity consistent with dilatation of the right ventricle. There is moderate to severe right ventricular systolic dysfunction.
2. Moderate pulmonary hypertension, estimated PASP 57 mmHg.
3. Elevated right atrial pressure, RA pressure estimated at 15 mmHg.
4. Normal left ventricular size and systolic function. D shape of the interventricular septum consistent with right ventricular pressure/volume overload.
5. No prior echocardiogram available for comparison.
6. A repeat echocardiogram in approximately 3 months is recommended to assure resolution of the abnormal findings. Should persistent abnormalities be found a perfusion lung scan would be recommended.
CT A/P: There is a confluent ovoid opacity within the anterior-inferior aspect of the right lower lobe of the lung, as described. This is suspicious for neoplasia/carcinoma. Minimal right pleural effusion. No significant left pleural effusion.
Minimal amount of pericardial fluid anteriorly and inferiorly. Significant enlargement of the right atrium and right ventricle with straightening of the interventricular septum, findings suggesting significant right heart strain. Filling defect
within the visualized common femoral vein and femoral vein, corresponding to DVT seen on recent venous ultrasound. 3 mm lesion within the right lobe of the liver, compatible with hemangioma stable since CT scan in 2006. Left renal cysts. Bony
degenerative changes as described. No CT evidence for bony metastatic disease.
Acute B/L PE and LLE DVT:
-CTA/echo/LE U/S above
-was on heparin gtt, now on Eliquis, clearly will need lifelong AC
-BPs borderline, pt saturating well on RA
-saturating well on RA
-pelvic/transvaginal, abdominal, bladder ultrasound above without evidence of mass
-CT A/P above and notable for RLL lesion concerning for malignancy
SVT:
-without recurrence
-A-tach vs AVNRT
-discussed cardiology, no med changes at this time
FULL/Eliquis/tele
Total time spent on d/c = 36 min. This included today's physical exam, progress note, review of laboratory and diagnostic data, preparation of discharge documents and prescriptions, and discussions about the pt's hospital course and discharge plan
with the patient and other certified medical biller involved in the patient's care.
Anticipated Discharge: Today
Subjective/Interval History
-
Date of Service: July 06, 2025
No new complaints.
Objective Data
-
Labs:
Laboratory Results
07/06/25
07:34
WBC Pending
Hgb Pending
Hct Pending
Plt Count Pending
Vital Signs:
Vital Signs
Temp Pulse Resp BP Pulse Ox
98.5 F 92 18 121/75 95
07/06/25 07:52 07/06/25 07:52 07/06/25 07:52 07/06/25 07:52 07/06/25 07:52
I&O
07/05/25 07/06/25 07/07/25
06:59 06:59 05:59
Intake Total 580 / 580
Balance 580 / 580
[2025-07-06 08:09] LABS: Hematocrit 38.6 % (37.0-47.0); Hemoglobin 13.4 g/dL (12.0-16.0); Mean Corp Hgb Conc. 34.7 g/dL (33.0-37.0); Mean Corpuscular Volume 95.5 fL (81.0-99.0); Platelet Count 247 10^3/uL (130-400); Red Cell Dist. Width 12.5 % (11.5-14.5)
--- NOTE | 2025-07-06 09:11 | W.PN.PUL3 ---
Today's Communication / Plan
-
Reviewed limitations for the next 2 weeks
Reviewed findings on CT imaging. Right lower lobe nodular area of consolidation
Reviewed possibly of malignancy
She will need follow-up in 6 weeks
All questions answered
Assessment
-
60-year-old female with shortness of breath present for about 2 weeks, progressive presents with worsening over the last 4 days, found to have sinus tachycardia, elevated troponin/proBNP, bilateral pulmonary embolism with RV strain per CT imaging.
Patient started on heparin therapy, PERT alert called.
Acute Bilateral PE and LLE DVT
RV strain, per CT imaging
Normotensive, normoxic
Sinus tachycardia
Abnormal EKG
Subjective dyspnea x 2 weeks
Progressive
Questionable family history of thromboembolic disease
Mother with multiple clots, IVC filter, details unclear
Father with blood clot, from heart failure, details unclear
Plan/recommendations
Patient continues to do well. Currently saturating well on room air. Normotensive, not requiring any supplemental oxygen or pressor support.
Tolerating Eliquis
Reviewed CT imaging at length with patient
Right lower lobe nodular density/consolidation
Reviewed differential which could also include cancer
Additional workup can be pursued as outpatient.
It will be important that she follows up in 6 weeks
Reviewed limitations
Ambulation is good but would avoid heavy lifting, greater than 15 to 20 pounds, frequent bending over, intense exercise for 2 weeks
Will favor long-term anticoagulation considering patient's age and unprovoked VTE event and a positive family history.
Will need age-appropriate cancer screening including mammogram and colonoscopy, can pursue as outpatient
Assess for need for home oxygen prior to discharge
Reviewed with patient at length
Patient had many questions, answered to the best of my ability and left instructions in the chart
Reviewed with primary service
Disposition efforts
Subjective Data
-
Date of Service:
Date of Service: July 06, 2025
Subjective:
Patient is without any complaints. She denies shortness of breath, cough, lightheadedness, dizziness, palpitations, leg pain.
Objective Data
Data Reviewed
Vital Signs / I&O / Oxygen:
Vital Signs
Temp Pulse Resp BP Pulse Ox
98.5 F 92 18 121/75 95
07/06/25 07:52 07/06/25 07:52 07/06/25 07:52 07/06/25 07:52 07/06/25 07:52
Intake and Output
07/05/25 07/06/25 07/07/25
06:59 06:59 05:59
Intake Total 580 / 580
Balance 580 / 580
SaO2 95
Physical Exam
General: Comfortable
HEENT: Normocephalic
Cardiovascular: S1-S2, Regular Rhythm, Murmur (n) and Peripheral Edema (Left lower extremity edema)
Respiratory: Clear and Non-Labored Respirations
GI: Soft and Non Distended
Neurology: Awake and Alert
Skin: Warm
Labs/Micro/Reports
Lab Data
07/06/25 07:34
07/03/25 01:49
--- NOTE | 2025-07-06 10:22 | CM ---
Chart reviewed and patient is for discharge home today, patient will start Eliquis, cost of a 30 day supply for patient is $5, and 90 supply has Zero copay, case fitter explained to patient that she may have to warp picker prescription at local
pharmacy and order 90 supply in future, 30 day free coupon provided to patient. Son to transport patient to home.
Plan; Home with son
--- NOTE | 2025-07-06 11:30 | W.DCSUMMARY ---
Discharge Summary
Discharge Data
Date of Admission: 07/02/25
Date of Discharge: 07/06/25
-
Pending Results: No
Hospital Course
Primary diagnoses:
Acute bilateral pulmonary emboli
Acute left lower extremity DVT
SVT
Secondary diagnoses:
None
Consultants:
Cardiology
Pulmonary/critical care
Imaging:
CTA chest:
1. Positive for pulmonary embolism within each distal main pulmonary artery, extending into the segmental and subsegmental arteries of each lobe of the lung.
2. Positive for evidence of right heart strain, RV: LV ratio approximately 2.
3. Clear lungs.
ECG (read by me): Sinus tachy @ 119, nl axis, nl intervals except QTc 475ms, S1Q3T3 pattern
B/L LE U/S: Acute deep venous thrombosis from the left common femoral vein through the left popliteal vein.
Pelvic/transvaginal U/S: Unremarkable pelvic ultrasound
Abd U/S: Unremarkable abdominal ultrasound
Bladder U/S: Severe urinary retention.
Echo:
1. The RV cavity is larger than the left ventricular cavity consistent with dilatation of the right ventricle. There is moderate to severe right ventricular systolic dysfunction.
2. Moderate pulmonary hypertension, estimated PASP 57 mmHg.
3. Elevated right atrial pressure, RA pressure estimated at 15 mmHg.
4. Normal left ventricular size and systolic function. D shape of the interventricular septum consistent with right ventricular pressure/volume overload.
5. No prior echocardiogram available for comparison.
6. A repeat echocardiogram in approximately 3 months is recommended to assure resolution of the abnormal findings. Should persistent abnormalities be found a perfusion lung scan would be recommended.
CT A/P: There is a confluent ovoid opacity within the anterior-inferior aspect of the right lower lobe of the lung, as described. This is suspicious for neoplasia/carcinoma. Minimal right pleural effusion. No significant left pleural effusion.
Minimal amount of pericardial fluid anteriorly and inferiorly. Significant enlargement of the right atrium and right ventricle with straightening of the interventricular septum, findings suggesting significant right heart strain. Filling defect
within the visualized common femoral vein and femoral vein, corresponding to DVT seen on recent venous ultrasound. 3 mm lesion within the right lobe of the liver, compatible with hemangioma stable since CT scan in 2006. Left renal cysts. Bony
degenerative changes as described. No CT evidence for bony metastatic disease.
Hospital course: 60-year-old female who presented with a chief complaint of shortness of breath as outlined in the H&P done on admission. All imaging above. The patient was diagnosed with bilateral pulmonary emboli and left lower extremity DVT.
She was initially treated with a heparin drip and then transition to Eliquis. The patient never required oxygen support. The patient had a notable finding of 'confluent ovoid opacity within the anterior-inferior aspect of the right lower lobe of
the lung, as described. This is suspicious for neoplasia/carcinoma' as above. This was discussed with the patient and she verbally acknowledged understanding this finding requires follow-up. Patient was discharged in medically stable condition.
Discharge Plan
-
Patient Disposition: Home (Routine Discharge)
Discharge Diagnosis/Procedures: Acute bilateral pulmonary emboli, acute left lower extremity DVT
Condition: Good
Diet: Regular
Activity: No strenuous activity
Driving Restrictions: As prior to admission
Activity Restrictions/Additional Instructions:
INCIDENTAL FINDING: CT A/P: There is a confluent ovoid opacity within the anterior-inferior aspect of the right lower lobe of the lung, as described. This is suspicious for neoplasia/carcinoma.
-As discussed, you will follow-up with pulmonary regarding this finding
Referrals:
Timmy Rudolph MD [Active, Pulmonary Medicine] - in six weeks
Referral Note: Close follow-up for thromboembolic disease, pulm and hypertension
pt also has a nodule in lung
do not lift heavy objects or do intense exercise for 2 weeks. walking at a slow pace is good
Gi Warner, [Family Provider, Family Practice] - in less than 1 week
Prescriptions:
New
Eliquis 5 mg tablet
5 mg PO BID Qty: 190 0RF
Rx Instructions:
10mg BID for 10 more doses (last 10mg dose 07/11/25 AM) then 5 mg BID, 90-day supply
Continued
therapeutic multivitamin Tablet
1 tab PO DAILY
calcium carbonate 500 mg calcium (1,250 mg) Tablet
1,000 mg PO DAILY
ascorbic acid (vitamin C) [Vitamin C] 500 mg Tablet
500 mg PO DAILY
Discharge Orders:
Discharge Patient (As Directed); Ordered 07/06/25
Ordered By: Zechariah Valiente
Discharge Date and Time
Discharge Date/Time: 07/06/25 11:23
Print Language: SLOVENIAN
--- NOTE | 2025-07-08 11:45 | PN.CDI ---
CDI
- -
CDI:
Physician Documentation Request
Admit Date: 07/02/25 15:18
Dear Doctor Steffanie,
Please review the following and provide your response in the progress notes.
Clinical Indicators:
Pt admitted with acute bilateral pulmonary embolism and acute DVT.
CTA chest -Positive for right heart strain
Echo:
1. The RV cavity is larger than the left ventricular cavity consistent with dilatation of the right ventricle. There is moderate to severe right ventricular systolic dysfunction.
2. Moderate pulmonary hypertension, estimated PASP 57 mmHg.
3. Elevated right atrial pressure, RA pressure estimated at 15 mmHg.
4. Normal left ventricular size and systolic function. D shape of the interventricular septum consistent with right ventricular pressure/volume overload.
07/03 Cardiology: 'Nonischemic myocardial injury from pulmonary emboli, peak trop 0.285
Elevated pBNP 7,590 is from right heart failure from pulmonary emboi'
Based on the above, could you clarify in the progress notes, the appropriate diagnosis, if significant, that supports the above abnormalities and additional evaluation, monitoring and/or treatment rendered:
Acute Pulmonary embolism with acute cor pulmonale
Acute pulmonary embolism without acute cor pulmonale
Other
Use of terms such as suspected, likely, concern for, or probable (associated with a specific diagnosis that is being evaluated, monitored, or treated as if it exists) are acceptable and can be coded in the inpatient setting, when documented at the
time of discharge.
Thank you,
Debbie Watts RN, BSN
CDI Specialist
[facility] [employer]
Please use your independent medical judgment in providing your response.
== END 2025-07-06 11:23 | disposition home or self-care (01) | DRG 175 ==
LOC: 4 WEST ACU 15:18
PROVIDERS: Nurse Practitioner Gerontology; Nurse Practitioner Primary Care; ADMITTING PHYSICIAN Internal Medicine; CONSULT PHYSICIAN Internal Medicine Cardiovascular Disease; CONSULT PHYSICIAN Internal Medicine Critical Care Medicine; EMERGENCY PHYSICIAN Emergency Medicine; FAMILY PHYSICIAN Family Medicine
DX: I26.09 Other pulmonary embolism with acute cor pulmonale (principal); I82.412 Acute embolism and thrombosis of left femoral vein; I82.432 Acute embolism and thrombosis of left popliteal vein; I47.10 Supraventricular tachycardia, unspecified; I5A Non-ischemic myocardial injury (non-traumatic); E46 Unspecified protein-calorie malnutrition; Z68.1 Body mass index [BMI] 19.9 or less, adult; I50.810 Right heart failure, unspecified; R74.01 Elevation of levels of liver transaminase levels; I27.20 Pulmonary hypertension, unspecified; Z11.52 Encounter for screening for COVID-19; Z79.899 Other long term (current) drug therapy
CPT/HCPCS: 71045; 71275; 74177; 76700; 76830; 76856; 76857; 80048; 80053; 82962; 83735; 83880; 84100; 84484; 85025; 85027; 85379; 85384; 85610; 85730; 87811; 93005; 93306; 93970; 96365; 96366; 99291; Q9967

== ENCOUNTER → 2025-07-20 11:17 | Outpatient (REF) | payer BC, SELFPAY | LOC: WDC 11:17 | PROVIDERS: ATTENDING PHYSICIAN Family Medicine | DX: Z12.31 Encounter for screening mammogram for malignant neoplasm of breast (principal) | CPT/HCPCS: 77063; 77067 ==